=== PATIENT | male | born 1960 | race Caucasian/White ===

== ENCOUNTER 2018-04-01 19:13 | Emergency (ER) | payer OTHER ==
[2018-04-01] MEDS: HYDROmorphONE 0.5 MG/0.5 ML SYG IV ×2 (19:49→21:26)
[2018-04-01] MEDS: ONDANSETRON 4 MG INJ IV (19:49)
[2018-04-01 21:19] LABS: ADD MAN DIFF? NO
[2018-04-01 21:22] LABS: BASOPHIL # 0.1 10^3/ul (0.0-0.1); BASOPHILS % 0.6 % (0.0-2.0); EOSINOPHILS % 0.1 % (0.0-7.0); HEMATOCRIT 43.8 % (42.0-52.0); HEMOGLOBIN 15.2 g/dl (14.0-18.0); LYMPHOCYTES # 1.7 10^3/ul (0.8-2.9); LYMPHOCYTES % 17.8 % (15.0-51.0); MEAN CORPUSCULAR HEMOGLOBIN 33.9 pg (29.0-33.0); MEAN CORPUSCULAR HGB CONC 34.7 g/dl (32.0-37.0); MEAN CORPUSCULAR VOLUME 97.6 fl (82.0-101.0); MONOCYTE # 1.2 10^3/ul (0.3-0.9); MONOCYTES % 12.5 % (0.0-11.0); NEUTROPHIL # 6.4 10^3/ul (1.6-7.5); NEUTROPHILS % 68.6 % (39.0-77.0); PLATELET COUNT 227 10^3/UL (140-415); RED BLOOD COUNT 4.49 10^6/ul (4.70-6.10); RED CELL DISTRIBUTION WIDTH 12.2 % (11.5-14.5)
[2018-04-01 21:22] LABS: WHITE BLOOD COUNT 9.3 10^3/ul (4.8-10.8)
[2018-04-01 21:30] LABS: ANION GAP 15 (5-13); BLOOD UREA NITROGEN 14 mg/dl (7-20); CALCIUM 9.9 mg/dl (8.4-10.2); CARBON DIOXIDE 23 mmol/L (21-31); CHLORIDE 103 mmol/L (97-110); CREATININE 0.86 mg/dl (0.61-1.24); Estimated GFR > 60 mL/min (>60); GLUCOSE 117 mg/dl (70-220); INR 1.01; PROTIME 13.4 Sec (11.9-14.9); SODIUM 141 mmol/L (135-144)
[2018-04-01] MEDS ORDERED: BISACODYL (EC) 5 MG TAB PO (21:30)
[2018-04-01] MEDS ORDERED: ONDANSETRON 4 MG INJ IV (21:30)
[2018-04-01] MEDS ORDERED: CEFTRIAXONE 2 GM/50 ML (PMX) 50 ML IVPB (21:30)
[2018-04-01] MEDS ORDERED: HYDROCODONE/APAP (5/325) TAB PO (21:30)
[2018-04-01] MEDS ORDERED: ACETAMINOPHEN 325 MG TAB PO (21:30)
[2018-04-01] MEDS ORDERED: DOCUSATE SODIUM 100 MG CAP PO (21:30)
[2018-04-01] MEDS ORDERED: NACL 0.9% 3 ML SYG IV (21:30)
[2018-04-01] MEDS ORDERED: HYDROmorphONE 0.5 MG/0.5 ML SYG IV (21:30)
[2018-04-02] MEDS ORDERED: SOD CHLORIDE 0.9% 1,000 ML IV
== END 2018-04-01 22:55 | disposition left against medical advice (07) ==
LOC: E/R 19:13
DX: S52.021B Displaced fracture of olecranon process without intraarticular extension of right ulna, initial encounter for open fracture type I or II (principal); S52.501A Unspecified fracture of the lower end of right radius, initial encounter for closed fracture; R51 Headache; R06.02 Shortness of breath; W01.198A Fall on same level from slipping, tripping and stumbling with subsequent striking against other object, initial encounter; Y92.9 Unspecified place or not applicable; Z87.891 Personal history of nicotine dependence
CPT/HCPCS: 70450; 71045; 72125; 73080-RT; 73090-RT; 73110-RT; 80048; 85025; 85610; 85730; 93005; 96374; 96375; 96376; 99285-25

== ENCOUNTER 2018-04-02 12:41 | Inpatient (IN) | payer OTHER ==
[2018-04-02] MEDS: ONDANSETRON 4 MG INJ IV (19:20)
[2018-04-02] MEDS: LORAZEPAM 2 MG INJ IV (19:20)
[2018-04-02] MEDS: morphine 4 MG/ML VIAL IV (19:21)
[2018-04-02] MEDS: SOD CHLORIDE 0.9% 1,000 ML IV (19:36)
[2018-04-02 19:37] LABS: ADD MAN DIFF? NO
[2018-04-02 19:43] LABS: WHITE BLOOD COUNT 9.9 10^3/ul (4.8-10.8)
[2018-04-02 19:43] LABS: BASOPHILS % 0.4 % (0.0-2.0); HEMATOCRIT 39.6 % (42.0-52.0); HEMOGLOBIN 13.9 g/dl (14.0-18.0); LYMPHOCYTES # 1.2 10^3/ul (0.8-2.9); LYMPHOCYTES % 12.5 % (15.0-51.0); MEAN CORPUSCULAR HEMOGLOBIN 34.2 pg (29.0-33.0); MEAN CORPUSCULAR HGB CONC 35.1 g/dl (32.0-37.0); MEAN CORPUSCULAR VOLUME 97.3 fl (82.0-101.0); MEAN PLATELET VOLUME 9.9 fl (7.4-10.4); MONOCYTE # 1.2 10^3/ul (0.3-0.9); NEUTROPHIL # 7.4 10^3/ul (1.6-7.5); NEUTROPHILS % 74.8 % (39.0-77.0); PLATELET COUNT 175 10^3/UL (140-415); RED BLOOD COUNT 4.07 10^6/ul (4.70-6.10); RED CELL DISTRIBUTION WIDTH 12.2 % (11.5-14.5)
[2018-04-02 20:00] LABS: ALANINE AMINOTRANSFERASE 39 IU/L (13-69); ALBUMIN 4.3 g/dl (3.3-4.9); ALBUMIN/GLOBULIN RATIO 1.22; ALKALINE PHOSPHATASE 93 IU/L (42-121); ANION GAP 11 (5-13); ASPARTATE AMINO TRANSFERASE 74 IU/L (15-46); BILIRUBIN,INDIRECT 1.6 mg/dl (0-1.1); BILIRUBIN,TOTAL 1.6 mg/dl (0.2-1.3); BLOOD UREA NITROGEN 10 mg/dl (7-20); CALCIUM 9.6 mg/dl (8.4-10.2); CARBON DIOXIDE 25 mmol/L (21-31); CHLORIDE 102 mmol/L (97-110); CREATININE 0.71 mg/dl (0.61-1.24); Estimated GFR > 60 mL/min (>60); GLUCOSE 117 mg/dl (70-220); POTASSIUM 3.9 mmol/L (3.5-5.1); SODIUM 138 mmol/L (135-144); TOTAL PROTEIN 7.8 g/dl (6.1-8.1)
[2018-04-02] MEDS ORDERED: ACETAMINOPHEN 325 MG TAB PO (20:30)
[2018-04-02] MEDS ORDERED: ONDANSETRON 4 MG INJ IV ×2 (20:30→21:00)
[2018-04-02] MEDS ORDERED: DOCUSATE SODIUM 100 MG CAP PO (21:00)
[2018-04-02] MEDS ORDERED: NACL 0.9% 3 ML SYG IV (21:00)
[2018-04-02] MEDS ORDERED: BISACODYL (EC) 5 MG TAB PO (21:00)
[2018-04-02] MEDS: morphine 2 MG INJ IV (22:57)
[2018-04-03] MEDS: SOD CHLORIDE 0.9% 1,000 ML IV ×2 (01:16)
[2018-04-03] MEDS: HYDROCODONE/APAP (5/325) TAB PO ×2 (01:16→15:32)
[2018-04-03] MEDS: ACETAMINOPHEN 325 MG TAB PO ×2 (02:09→14:32)
[2018-04-03] MEDS: morphine 2 MG INJ IV ×3 (04:41→21:21)
[2018-04-03 05:42] LABS: ADD MAN DIFF? NO
[2018-04-03 05:53] LABS: BASOPHILS % 0.3 % (0.0-2.0); EOSINOPHILS % 0.2 % (0.0-7.0); HEMATOCRIT 36.3 % (42.0-52.0); HEMOGLOBIN 12.4 g/dl (14.0-18.0); LYMPHOCYTES # 1.6 10^3/ul (0.8-2.9); LYMPHOCYTES % 16.7 % (15.0-51.0); MEAN CORPUSCULAR HEMOGLOBIN 34.3 pg (29.0-33.0); MEAN CORPUSCULAR HGB CONC 34.2 g/dl (32.0-37.0); MEAN CORPUSCULAR VOLUME 100.3 fl (82.0-101.0); MEAN PLATELET VOLUME 9.9 fl (7.4-10.4); MONOCYTE # 1.2 10^3/ul (0.3-0.9); MONOCYTES % 12.8 % (0.0-11.0); NEUTROPHIL # 6.8 10^3/ul (1.6-7.5); NEUTROPHILS % 69.5 % (39.0-77.0); PLATELET COUNT 157 10^3/UL (140-415); RED BLOOD COUNT 3.62 10^6/ul (4.70-6.10); RED CELL DISTRIBUTION WIDTH 12.2 % (11.5-14.5)
[2018-04-03 05:53] LABS: WHITE BLOOD COUNT 9.7 10^3/ul (4.8-10.8)
[2018-04-03 06:02] LABS: HEMOGLOBIN A1C 5.2 % (0-5.9)
[2018-04-03] MEDS: CEFAZOLIN 2 GM/50 ML (PMX) 50 ML IVPB ×3 (06:07→21:21)
[2018-04-03 06:38] LABS: ALANINE AMINOTRANSFERASE 34 IU/L (13-69); ALBUMIN 3.7 g/dl (3.3-4.9); ALBUMIN/GLOBULIN RATIO 1.23; ALKALINE PHOSPHATASE 73 IU/L (42-121); ANION GAP 10 (5-13); ASPARTATE AMINO TRANSFERASE 73 IU/L (15-46); BILIRUBIN,INDIRECT 1.2 mg/dl (0-1.1); BILIRUBIN,TOTAL 1.2 mg/dl (0.2-1.3); BLOOD UREA NITROGEN 13 mg/dl (7-20); CALCIUM 8.8 mg/dl (8.4-10.2); CARBON DIOXIDE 24 mmol/L (21-31); CHLORIDE 106 mmol/L (97-110); CHOL/HDL RATIO 2.2 RATIO; CHOLESTEROL 129 mg/dl (100-200); CREATININE 0.81 mg/dl (0.61-1.24); Estimated GFR > 60 mL/min (>60); GLUCOSE 114 mg/dl (70-220); HDL CHOLESTEROL 57 mg/dl (30-78); LDL CHOLESTEROL,CALCULATED 53 mg/dl; MAGNESIUM 2.1 mg/dl (1.7-2.5); POTASSIUM 3.8 mmol/L (3.5-5.1); SODIUM 140 mmol/L (135-144); TOTAL PROTEIN 6.7 g/dl (6.1-8.1); TRIGLYCERIDES 96 mg/dl (0-149)
[2018-04-03] MEDS ORDERED: ALBUTEROL/IPRATROPIUM (NEB) 3 ML AMP HHN (11:00)
[2018-04-03] MEDS ORDERED: hydrALAzine 20 MG INJ IV (11:00)
[2018-04-03] MEDS: LORAZEPAM 2 MG INJ IV ×2 (11:46→21:50)
[2018-04-03] MEDS: ENOXAPARIN 40 MG/0.4 ML SYG SC (11:48)
[2018-04-03] MEDS: NICOTINE (21 MG/24 HR) PATCH TRANSDERM (12:04)
[2018-04-04] MEDS: SOD CHLORIDE 0.9% 1,000 ML IV ×2 (01:00→12:43)
[2018-04-04] MEDS: CEFAZOLIN 2 GM/50 ML (PMX) 50 ML IVPB ×4 (06:00→23:55)
[2018-04-04] MEDS: NICOTINE (21 MG/24 HR) PATCH TRANSDERM (08:58)
[2018-04-04] MEDS: ENOXAPARIN 40 MG/0.4 ML SYG SC (08:59)
[2018-04-04 11:22] LABS: ADD MAN DIFF? NO
[2018-04-04 11:24] LABS: WHITE BLOOD COUNT 8.8 10^3/ul (4.8-10.8)
[2018-04-04 11:24] LABS: BASOPHILS % 0.5 % (0.0-2.0); EOSINOPHILS % 0.2 % (0.0-7.0); HEMATOCRIT 35.8 % (42.0-52.0); HEMOGLOBIN 12.3 g/dl (14.0-18.0); LYMPHOCYTES # 1.1 10^3/ul (0.8-2.9); LYMPHOCYTES % 12.3 % (15.0-51.0); MEAN CORPUSCULAR HEMOGLOBIN 33.9 pg (29.0-33.0); MEAN CORPUSCULAR HGB CONC 34.4 g/dl (32.0-37.0); MEAN CORPUSCULAR VOLUME 98.6 fl (82.0-101.0); MEAN PLATELET VOLUME 9.5 fl (7.4-10.4); MONOCYTE # 1.1 10^3/ul (0.3-0.9); NEUTROPHIL # 6.6 10^3/ul (1.6-7.5); NEUTROPHILS % 74.4 % (39.0-77.0); PLATELET COUNT 196 10^3/UL (140-415); RED BLOOD COUNT 3.63 10^6/ul (4.70-6.10); RED CELL DISTRIBUTION WIDTH 11.9 % (11.5-14.5)
[2018-04-04] MEDS: morphine 2 MG INJ IV ×2 (11:29→20:50)
[2018-04-04 11:42] LABS: ANION GAP 11 (5-13); BLOOD UREA NITROGEN 10 mg/dl (7-20); CALCIUM 8.9 mg/dl (8.4-10.2); CARBON DIOXIDE 25 mmol/L (21-31); CHLORIDE 100 mmol/L (97-110); CREATININE 0.61 mg/dl (0.61-1.24); Estimated GFR > 60 mL/min (>60); GLUCOSE 129 mg/dl (70-220); POTASSIUM 3.6 mmol/L (3.5-5.1); SODIUM 136 mmol/L (135-144)
[2018-04-04] MEDS: LORAZEPAM 2 MG INJ IV (12:10)
[2018-04-04 12:48] LABS: PHOSPHORUS 3.3 mg/dl (2.5-4.9)
[2018-04-04 12:48] LABS: MAGNESIUM 2.1 mg/dl (1.7-2.5)
[2018-04-05] MEDS: LORAZEPAM 2 MG INJ IV ×2 (00:09→22:09)
[2018-04-05] MEDS: SOD CHLORIDE 0.9% 1,000 ML IV ×3 (02:00→17:17)
[2018-04-05] MEDS: CEFAZOLIN 2 GM/50 ML (PMX) 50 ML IVPB ×3 (05:57→21:25)
[2018-04-05] MEDS: morphine 2 MG INJ IV ×3 (05:58→21:25)
[2018-04-05 06:06] LABS: WHITE BLOOD COUNT 8.1 10^3/ul (4.8-10.8)
[2018-04-05 06:06] LABS: ADD MAN DIFF? NO; BASOPHILS % 0.5 % (0.0-2.0); EOSINOPHILS # 0.1 10^3/ul (0.0-0.5); EOSINOPHILS % 1.1 % (0.0-7.0); HEMATOCRIT 36.5 % (42.0-52.0); HEMOGLOBIN 12.7 g/dl (14.0-18.0); LYMPHOCYTES # 1.7 10^3/ul (0.8-2.9); LYMPHOCYTES % 20.7 % (15.0-51.0); MEAN CORPUSCULAR HEMOGLOBIN 34.8 pg (29.0-33.0); MEAN CORPUSCULAR HGB CONC 34.8 g/dl (32.0-37.0); MEAN PLATELET VOLUME 9.7 fl (7.4-10.4); MONOCYTE # 1.3 10^3/ul (0.3-0.9); MONOCYTES % 15.9 % (0.0-11.0); NEUTROPHILS % 61.4 % (39.0-77.0); PLATELET COUNT 224 10^3/UL (140-415); RED BLOOD COUNT 3.65 10^6/ul (4.70-6.10); RED CELL DISTRIBUTION WIDTH 11.9 % (11.5-14.5)
[2018-04-05 06:43] LABS: MAGNESIUM 2.4 mg/dl (1.7-2.5)
[2018-04-05 06:43] LABS: PHOSPHORUS 3.9 mg/dl (2.5-4.9)
[2018-04-05 06:45] LABS: ANION GAP 10 (5-13); BLOOD UREA NITROGEN 12 mg/dl (7-20); CALCIUM 8.8 mg/dl (8.4-10.2); CARBON DIOXIDE 27 mmol/L (21-31); CHLORIDE 101 mmol/L (97-110); CREATININE 0.66 mg/dl (0.61-1.24); Estimated GFR > 60 mL/min (>60); GLUCOSE 115 mg/dl (70-220); POTASSIUM 3.4 mmol/L (3.5-5.1); SODIUM 138 mmol/L (135-144)
[2018-04-05] MEDS ORDERED: SEVOFLURANE 15 MIN (07:00)
[2018-04-05] MEDS ORDERED: CEFAZOLIN 1 GM INJ (07:00)
[2018-04-05] MEDS ORDERED: LIDOCAINE 2% (SDV) 5 ML INJ (07:00)
[2018-04-05] MEDS: ENOXAPARIN 40 MG/0.4 ML SYG SC (07:46)
[2018-04-05] MEDS: NICOTINE (21 MG/24 HR) PATCH TRANSDERM (08:03)
[2018-04-05] MEDS: TOBRAMYCIN 1.2 GM POWDER (13:36)
[2018-04-05] MEDS: POLYMYXIN B 500000 UNIT INJ (13:36)
[2018-04-05] MEDS: VANCOMYCIN 1 GM INJ (13:37)
[2018-04-05] MEDS ORDERED: NACL 0.9% 3 ML SYG IV (15:00)
[2018-04-05] MEDS ORDERED: HYDROmorphONE 1 MG/5 ML IV SYRINGE IV (15:20)
[2018-04-05] MEDS ORDERED: hydrALAzine 20 MG INJ IV (15:30)
[2018-04-05] MEDS ORDERED: LABETALOL HCL 20MG INJ IV (15:30)
[2018-04-05] MEDS: HYDROmorphONE 1 MG/5 ML IV SYRINGE IV (15:36)
[2018-04-05] MEDS ORDERED: GLYCOPYRROLATE 0.4 MG INJ (15:43)
[2018-04-05] MEDS ORDERED: NEOSTIGMINE 3 MG/3 ML SYRINGE (15:43)
[2018-04-05] MEDS ORDERED: MIDAZOLAM 1 MG/ML 2 ML INJ (15:43)
[2018-04-05] MEDS ORDERED: ROCURONIUM 50 MG INJ (15:43)
[2018-04-05] MEDS ORDERED: PROPOFOL 20 ML (15:43)
[2018-04-05] MEDS ORDERED: LABETALOL HCL 20MG INJ (15:44)
[2018-04-05] MEDS ORDERED: FENTAnyl 50 MCG/ML VIAL (16:02)
[2018-04-05] MEDS: FENTAnyl 50 MCG/ML VIAL IV (16:05)
[2018-04-05] MEDS: CEFAZOLIN 1 GM/50 ML (PMX) 50 ML IVPB (16:25)
[2018-04-06] MEDS: CEFAZOLIN 1 GM/50 ML (PMX) 50 ML IVPB ×2 (00:30→07:59)
[2018-04-06] MEDS: SOD CHLORIDE 0.9% 1,000 ML IV ×2 (00:52→03:00)
[2018-04-06] MEDS: morphine 2 MG INJ IV (01:34)
[2018-04-06] MEDS: morphine 4 MG/ML VIAL IV ×3 (04:28→14:52)
[2018-04-06 05:04] LABS: ADD MAN DIFF? NO
[2018-04-06 05:21] LABS: WHITE BLOOD COUNT 8.4 10^3/ul (4.8-10.8)
[2018-04-06 05:21] LABS: BASOPHILS % 0.4 % (0.0-2.0); EOSINOPHILS # 0.1 10^3/ul (0.0-0.5); EOSINOPHILS % 0.6 % (0.0-7.0); HEMATOCRIT 33.6 % (42.0-52.0); HEMOGLOBIN 11.5 g/dl (14.0-18.0); LYMPHOCYTES # 1.2 10^3/ul (0.8-2.9); LYMPHOCYTES % 14.5 % (15.0-51.0); MEAN CORPUSCULAR HEMOGLOBIN 33.9 pg (29.0-33.0); MEAN CORPUSCULAR HGB CONC 34.2 g/dl (32.0-37.0); MEAN CORPUSCULAR VOLUME 99.1 fl (82.0-101.0); MEAN PLATELET VOLUME 9.6 fl (7.4-10.4); MONOCYTE # 1.4 10^3/ul (0.3-0.9); MONOCYTES % 16.9 % (0.0-11.0); NEUTROPHIL # 5.7 10^3/ul (1.6-7.5); NEUTROPHILS % 67.1 % (39.0-77.0); PLATELET COUNT 235 10^3/UL (140-415); RED BLOOD COUNT 3.39 10^6/ul (4.70-6.10); RED CELL DISTRIBUTION WIDTH 11.9 % (11.5-14.5)
[2018-04-06] MEDS: CEFAZOLIN 2 GM/50 ML (PMX) 50 ML IVPB ×3 (05:22→21:02)
[2018-04-06 05:50] LABS: MAGNESIUM 2.1 mg/dl (1.7-2.5)
[2018-04-06 05:50] LABS: PHOSPHORUS 3.6 mg/dl (2.5-4.9)
[2018-04-06 06:02] LABS: ANION GAP 10 (5-13); BLOOD UREA NITROGEN 9 mg/dl (7-20); CALCIUM 8.7 mg/dl (8.4-10.2); CARBON DIOXIDE 27 mmol/L (21-31); CHLORIDE 101 mmol/L (97-110); CREATININE 0.63 mg/dl (0.61-1.24); Estimated GFR > 60 mL/min (>60); GLUCOSE 124 mg/dl (70-220); POTASSIUM 3.3 mmol/L (3.5-5.1); SODIUM 138 mmol/L (135-144)
[2018-04-06] MEDS: NICOTINE (21 MG/24 HR) PATCH TRANSDERM (08:47)
[2018-04-06] MEDS: ENOXAPARIN 40 MG/0.4 ML SYG SC ×2 (08:49→08:55)
[2018-04-06] MEDS: POTASSIUM CHLORIDE (SR) 20 MEQ TAB PO ×2 (11:14→14:52)
[2018-04-06] MEDS: DOCUSATE SODIUM 100 MG CAP PO (21:05)
[2018-04-06] MEDS: HYDROCODONE/APAP (5/325) TAB PO (21:05)
[2018-04-06] MEDS: ZOLPIDEM 5 MG TAB PO (22:02)
[2018-04-07] MEDS: HYDROCODONE/APAP (5/325) TAB PO ×3 (04:04→20:06)
[2018-04-07] MEDS: CEFAZOLIN 2 GM/50 ML (PMX) 50 ML IVPB (05:16)
[2018-04-07] MEDS: DOCUSATE SODIUM 100 MG CAP PO ×2 (09:20→20:06)
[2018-04-07] MEDS: HYDROCHLOROTHIAZIDE 25 MG TAB PO (09:21)
[2018-04-07] MEDS: NICOTINE (21 MG/24 HR) PATCH TRANSDERM (09:21)
[2018-04-07] MEDS: ENOXAPARIN 40 MG/0.4 ML SYG SC (09:23)
[2018-04-07] MEDS ORDERED: morphine LIQ (10 MG/5 ML) CUP PO (09:36)
[2018-04-07] MEDS ORDERED: VANCOMYCIN IV PER PHARMACY XX (12:30)
[2018-04-07] MEDS: CEFEPIME 1GM/50 ML (PMX) 50 ML IVPB ×2 (14:54→23:53)
[2018-04-07] MEDS: LIDOCAINE 1% (MPF) 5 ML VIAL SC (16:00)
[2018-04-07] MEDS: VANCOMYCIN 1.5 GM in SOD CHLORIDE 0.9% 250 ML IVPB (17:03)
[2018-04-07] MEDS: LORAZEPAM 1 MG TAB PO (20:06)
[2018-04-07] MEDS: ZOLPIDEM 5 MG TAB PO (23:53)
[2018-04-08] MEDS: VANCOMYCIN 1 GM 250 ML IVPB (02:39)
[2018-04-08] MEDS: HYDROCODONE/APAP (5/325) TAB PO ×2 (07:36→18:09)
[2018-04-08] MEDS: DOCUSATE SODIUM 100 MG CAP PO ×2 (09:24→21:00)
[2018-04-08] MEDS: HYDROCHLOROTHIAZIDE 25 MG TAB PO (09:25)
[2018-04-08] MEDS: CEFEPIME 1GM/50 ML (PMX) 50 ML IVPB (09:25)
[2018-04-08] MEDS: NICOTINE (21 MG/24 HR) PATCH TRANSDERM (09:25)
[2018-04-08] MEDS: ENOXAPARIN 40 MG/0.4 ML SYG SC (09:50)
[2018-04-08] MEDS: CEFTRIAXONE 1 GM/50 ML (PMX) 50 ML IVPB (13:42)
[2018-04-08] MEDS: CIPROFLOXACIN 500 MG TAB PO (18:09)
[2018-04-08] MEDS: ZOLPIDEM 5 MG TAB PO (19:50)
[2018-04-09] MEDS: HYDROCODONE/APAP (5/325) TAB PO (04:37)
[2018-04-09] MEDS: ALTEPLASE (CATHFLO) 2 MG INJ CATHETER (05:43)
[2018-04-09] MEDS: CIPROFLOXACIN 500 MG TAB PO ×2 (05:50→17:55)
[2018-04-09 06:03] LABS: ALBUMIN 3.7 g/dl (3.3-4.9); ANION GAP 10 (5-13); BLOOD UREA NITROGEN 11 mg/dl (7-20); CALCIUM 9.4 mg/dl (8.4-10.2); CARBON DIOXIDE 28 mmol/L (21-31); CHLORIDE 98 mmol/L (97-110); CREATININE 0.69 mg/dl (0.61-1.24); GLUCOSE 114 mg/dl (70-220); PHOSPHORUS 4.4 mg/dl (2.5-4.9); POTASSIUM 3.8 mmol/L (3.5-5.1); SODIUM 136 mmol/L (135-144)
[2018-04-09] MEDS: DOCUSATE SODIUM 100 MG CAP PO ×2 (09:27→20:17)
[2018-04-09] MEDS: HYDROCHLOROTHIAZIDE 25 MG TAB PO (09:28)
[2018-04-09] MEDS: NICOTINE (21 MG/24 HR) PATCH TRANSDERM (09:29)
[2018-04-09] MEDS: ENOXAPARIN 40 MG/0.4 ML SYG SC (09:30)
[2018-04-09] MEDS: CEFTRIAXONE 1 GM/50 ML (PMX) 50 ML IVPB (14:41)
[2018-04-09] MEDS: morphine LIQ (10 MG/5 ML) CUP PO (20:17)
[2018-04-10] MEDS: ZOLPIDEM 5 MG TAB PO (00:10)
[2018-04-10] MEDS: CIPROFLOXACIN 500 MG TAB PO (06:29)
[2018-04-10] MEDS: HYDROCODONE/APAP (5/325) TAB PO (06:29)
[2018-04-10] MEDS: DOCUSATE SODIUM 100 MG CAP PO (08:40)
[2018-04-10] MEDS: HYDROCHLOROTHIAZIDE 25 MG TAB PO (08:41)
[2018-04-10] MEDS: ENOXAPARIN 40 MG/0.4 ML SYG SC (08:42)
[2018-04-10] MEDS: NICOTINE (21 MG/24 HR) PATCH TRANSDERM (08:44)
[2018-04-10] MEDS: CEFTRIAXONE 1 GM/50 ML (PMX) 50 ML IVPB (13:09)
== END 2018-04-10 13:42 | disposition home health service (06) | DRG 512 ==
LOC: MS1 04-05 16:25 → E/R 12:41 → 2NE 20:25
PROC: 0PSK04Z Reposition Right Ulna with Internal Fixation Device, Open Approach (ICD-10-PCS; principal; 2018-04-05 09:00)
DX: S52.031B Displaced fracture of olecranon process with intraarticular extension of right ulna, initial encounter for open fracture type I or II (principal); F17.200 Nicotine dependence, unspecified, uncomplicated; J43.9 Emphysema, unspecified; I10 Essential (primary) hypertension; D64.9 Anemia, unspecified; W18.30XA Fall on same level, unspecified, initial encounter
CPT/HCPCS: 36569; 71045; 73080-RT; 76937; 80048; 80053; 80061; 80069; 83036; 83735; 84100; 84443; 85025; 87070; 90686; 93005; 96374; 96375; 97110; 97116; 97161; 97530; 99285-25; G0378